=== PATIENT | female | born 1980 | race Hispanic/Latino ===

== ENCOUNTER 2021-10-07 16:15 | Emergency (ER) | payer OTHER ==
[~2021-10-07] VITALS: Ht 157.5 cm; Wt 45.4 kg
[~2021-10-07 16:15] MED LIST: CIPRO500 MG PO; METRONIDAZOLE500 MG PO
[2021-10-07] MEDS ORDERED: ACETAMINOPHEN 325 MG TAB PO PRN (17:00)
[2021-10-07] MEDS ORDERED: ACETAMINOPHEN 325 MG TAB PO ONE (17:00)
[2021-10-07] MEDS ORDERED: SODIUM CHLORIDE 0.9% 1000ML 1,000 ML IV ONE (17:00)
[2021-10-07 17:24] LABS: BASOPHILS % 0.3 % (0.0-1.0); EOSINOPHILS % 0.3 % (0.0-6.0); HEMATOCRIT 34.7 % (34.2-44.1); LYMPHOCYTES # (AUTO) 1.6 (1.0-3.2); LYMPHOCYTES % 21.3 % (18.0-39.1); MEAN CORPUSCULAR HGB CONC 34.6 g/dL (31-35); MEAN CORPUSCULAR VOLUME 89.7 fL (81-99); MONOCYTES # (AUTO) 0.9 (0.2-0.8); MONOCYTES % 11.8 % (4.4-11.3); NEUTROPHILS # (AUTO) 5.1 (2.1-6.9); NEUTROPHILS % 66.2 % (38.7-80.0); PLATELET COUNT 362 x10e3/uL (140-360); RED BLOOD COUNT 3.87 x10e6/uL (3.6-5.1); RED CELL DISTRIBUTION WIDTH 12.7 % (11.7-14.4)
[2021-10-07 17:43] LABS: ALBUMIN/GLOBULIN RATIO 1.1 (0.8-2.0); ANION GAP 13.8 mmol/L (8-16); CREATININE, SERUM 0.7 mg/dL (0.57-1.11); POTASSIUM 3.8 mmol/L (3.5-5.1)
[2021-10-07] MEDS ORDERED: CEFTRIAXONE 1 GM in SODIUM CHLORIDE 0.9% 50ML 50 ML IV SCH (17:45)
[2021-10-07] MEDS ORDERED: IBUPROFEN 600 MG TAB PO STA (17:59)
[2021-10-07 18:05] LABS: FREE THYROXINE INDEX 2.3453 (1.4-3.8); THYROID STIMULATING HORMONE 1.396 uIU/mL (0.350-4.940)
[2021-10-07 18:55] LABS: CLARITY,URINE CLEAR (CLEAR); COLOR,URINE YELLOW (YELLOW); KETONES,URINE 2+ (NEGATIVE); LEUKOCYTE ESTERASE ,URINE SMALL (NEGATIVE); NITRITE,URINE NEGATIVE (NEGATIVE); PROTEIN,URINE DIPSTICK NEGATIVE (NEGATIVE); URINE UROBILINOGEN 0.2 mg/dL (0.2 - 1)
[2021-10-07 18:57] LABS: AMPHETAMINES SCREEN,URINE NEGATIVE (NEGATIVE); BENZODIAZEPINES SCREEN,URINE POSITIVE (NEGATIVE); PHENCYCLIDINE SCREEN,URINE NEGATIVE (NEGATIVE)
[2021-10-07 19:05] LABS: BACTERIA,URINE MANY /HPF; EPITHELIAL CELLS,URINE MODERATE /LPF; RBC,URINE 0-5 /HPF (0-5)
[2021-10-07] MEDS ORDERED: CEPHALEXIN500 MG PO (19:24)
[2021-10-07 19:51] VITALS: BP 140/79
== END 2021-10-07 19:41 | disposition home or self-care (01) ==
LOC: ER 16:19
DX: R50.9 Fever, unspecified (principal); N39.0 Urinary tract infection, site not specified; R51.9 Headache, unspecified; F41.9 Anxiety disorder, unspecified
CPT/HCPCS: 36415; 71045; 80053; 80307; 81001; 83605; 84436; 84443; 84479; 84484; 85025; 85379; 87040; 87086; 93005; 99284; J0696; J7030; U0002

== ENCOUNTER 2024-01-12 19:11 | Emergency (ER) | payer OTHER ==
[~2024-01-12] VITALS: Ht 157.5 cm; Wt 48.1 kg
[~2024-01-12 19:11] MED LIST changes: +CEPHALEXIN500 MG PO
[2024-01-12 19:59] LABS: BASOPHILS % 0.5 % (0.0-1.0); EOSINOPHILS # (AUTO) 0.1 (0.0-0.4); EOSINOPHILS % 0.8 % (0.0-6.0); HEMATOCRIT 41.6 % (34.2-44.1); HEMOGLOBIN 13.9 g/dL (12.0-16.0); LYMPHOCYTES # (AUTO) 2.5 (1.0-3.2); LYMPHOCYTES % 40.5 % (18.0-39.1); MEAN CORPUSCULAR HEMOGLOBIN 31.3 pg (28-32); MEAN CORPUSCULAR HGB CONC 33.4 g/dL (31-35); MEAN CORPUSCULAR VOLUME 93.7 fL (81-99); MONOCYTES # (AUTO) 0.6 (0.2-0.8); MONOCYTES % 10.3 % (4.4-11.3); NEUTROPHILS # (AUTO) 2.9 (2.1-6.9); NEUTROPHILS % 47.7 % (38.7-80.0); PLATELET COUNT 358 x10e3/uL (140-360); RED BLOOD COUNT 4.44 x10e6/uL (3.6-5.1)
[2024-01-12 20:02] LABS: BILIRUBIN,URINE NEGATIVE (NEGATIVE); CLARITY,URINE CLEAR (CLEAR); COLOR,URINE YELLOW (YELLOW); GLUCOSE, URINE NEGATIVE (NEGATIVE); KETONES,URINE NEGATIVE (NEGATIVE); LEUKOCYTE ESTERASE ,URINE NEGATIVE (NEGATIVE); NITRITE,URINE NEGATIVE (NEGATIVE); PH,URINE 7.5 (5 - 7); PROTEIN,URINE DIPSTICK NEGATIVE (NEGATIVE); URINE UROBILINOGEN 0.2 mg/dL (0.2 - 1)
[2024-01-12 20:10] LABS: ALBUMIN 4.6 g/dL (3.5-5.0); ALBUMIN/GLOBULIN RATIO 1.2 (0.8-2.0); ANION GAP 17.4 mmol/L (8-16); BILIRUBIN,TOTAL 0.4 mg/dL (0.2-1.2); CALCIUM 9.5 mg/dL (8.4-10.2); CREATININE, SERUM 0.81 mg/dL (0.57-1.11); TOTAL PROTEIN 8.6 g/dL (6.5-8.1)
[2024-01-12 20:12] LABS: POTASSIUM 3.4 mmol/L (3.5-5.1)
[2024-01-12] MEDS: SODIUM CHLORIDE 0.9% 1000ML 1,000 ML IV ONE (20:13)
[2024-01-12] MEDS: Morphine 4mg INJECTION 4 MG/ML INJ IV ONE (20:13)
[2024-01-12] MEDS: ONDANSETRON HCL INJ 2MG/ML 2ML 2 MG/ML VIAL IV STA (20:13)
[2024-01-12 20:19] LABS: BACTERIA,URINE RARE /HPF; EPITHELIAL CELLS,URINE MODERATE /LPF
[2024-01-12] MEDS ORDERED: KETOROLAC TROMETHAMINE 30 MG/ML VIAL ONE (21:08)
[2024-01-12] MEDS: KETOROLAC TROMETHAMINE 30 MG/ML VIAL IV STA (21:10)
[2024-01-12] MEDS ORDERED: IOPAMIDOL 370 MG/ML 100 ML INFUS..BTL INJ ONE (23:44)
[2024-01-13] MEDS ORDERED: ULTRAM 50MG50 MG PO (01:20)
[2024-01-13] MEDS ORDERED: IBUPROFEN200 MG PO (01:20)
[2024-01-13] MEDS ORDERED: TYLENOL325 MG PO (01:20)
[2024-01-13] MEDS: HYDROCODONE/APAP 7.5MG-325MG 1 EA TAB PO ONE (01:23)
[2024-01-13] MEDS: ACETAMINOPHEN 325 MG TAB PO ONE (01:24)
[2024-01-13] MEDS: ONDANSETRON HCL 4 MG ORAL DISINTEGRATING TAB PO ONE (01:24)
[2024-01-13 02:32] VITALS: PULSE 80; RESP 16; TEMP 98.6; O2SAT 100
[2024-01-14] MEDS ORDERED: ONDANSETRON ODT4 MG PO (10:32)
== END 2024-01-13 02:28 | disposition home or self-care (01) ==
LOC: ER 19:18
DX: R50.9 Fever, unspecified (principal); R10.2 Pelvic and perineal pain; R10.31 Right lower quadrant pain; N83.201 Unspecified ovarian cyst, right side; D25.9 Leiomyoma of uterus, unspecified; D18.09 Hemangioma of other sites
CPT/HCPCS: 36415; 74177; 76830; 76856; 80053; 81001; 84702; 85025; 99284; J1885; J2270; J2405; J7030; Q0162; Q9967

== ENCOUNTER 2024-01-14 09:02 | Emergency (ER) | payer OTHER ==
[~2024-01-14] VITALS: Ht 157.5 cm; Wt 48.1 kg
[~2024-01-14 09:02] MED LIST changes: +IBUPROFEN200 MG PO; +TYLENOL325 MG PO; +ULTRAM 50MG50 MG PO
[2024-01-14 09:15] VITALS: PULSE 75; RESP 17; TEMP 99
[2024-01-14] MEDS: SODIUM CHLORIDE 0.9% 1000ML 1,000 ML IV SCH (09:48)
[2024-01-14] MEDS: KETOROLAC TROMETHAMINE 30 MG/ML VIAL IV STA (09:48)
[2024-01-14] MEDS: METOCLOPRAMIDE HCL 10 MG/2ML VIAL IV ONE (09:48)
[2024-01-14] MEDS: ONDANSETRON HCL INJ 2MG/ML 2ML 2 MG/ML VIAL IV STA (09:48)
[2024-01-14] MEDS: DIPHENHYDRAMINE HCL 25 MG CAP PO ONE (09:48)
[2024-01-14 09:52] LABS: BASOPHILS % 0.5 % (0.0-1.0); EOSINOPHILS # (AUTO) 0.1 (0.0-0.4); EOSINOPHILS % 1.3 % (0.0-6.0); HEMATOCRIT 35.6 % (34.2-44.1); HEMOGLOBIN 12.2 g/dL (12.0-16.0); LYMPHOCYTES # (AUTO) 3.3 (1.0-3.2); LYMPHOCYTES % 55.1 % (18.0-39.1); MEAN CORPUSCULAR HEMOGLOBIN 31.5 pg (28-32); MEAN CORPUSCULAR HGB CONC 34.3 g/dL (31-35); MONOCYTES # (AUTO) 0.6 (0.2-0.8); MONOCYTES % 10.8 % (4.4-11.3); NEUTROPHILS # (AUTO) 1.9 (2.1-6.9); NEUTROPHILS % 32.3 % (38.7-80.0); PLATELET COUNT 305 x10e3/uL (140-360); RED BLOOD COUNT 3.87 x10e6/uL (3.6-5.1); RED CELL DISTRIBUTION WIDTH 12.3 % (11.7-14.4); WHITE BLOOD COUNT 5.93 x10e3/uL (4.8-10.8)
[2024-01-14 10:04] LABS: CREATININE, SERUM 0.72 mg/dL (0.57-1.11)
[2024-01-14] MEDS ORDERED: ONDANSETRON ODT4 MG PO (10:32)
[2024-01-14 10:44] VITALS: BP 137/80; PULSE 72; RESP 16; TEMP 98.7; O2SAT 100
== END 2024-01-14 11:03 | disposition home or self-care (01) ==
LOC: ER 09:05
DX: G43.909 Migraine, unspecified, not intractable, without status migrainosus (principal); R11.0 Nausea
CPT/HCPCS: 36415; 80048; 85025; 99283; J1885; J2405; J2765; J7030